=== PATIENT | female | born 1960 | race Caucasian/White ===

== ENCOUNTER 2021-03-07 10:26 | Inpatient (IN) | payer MEDICAID ==
[2021-03-07] VITALS (10 sets, daily range): BP systolic 140–191; BP diastolic 49–111
[~2021-03-07] VITALS: Ht 162.6 cm; Wt 50.9 kg
[~2021-03-07 10:26] MED LIST: VANCOMYCIN 1 GM in IV D5W 250ml IV ONE
--- NOTE | 2021-03-07 10:26 | NUR ---
PT BIBRA FROM THE STREET C/O BIZZARRE BEHAVIOR POSSIBLE DRUG USED. PT IS AAOX1, NOT IN RESPIRATORY DISTRESS, HOOKED TO DIGITAL CAMPAIGN MANAGER, KEPT RESTED AND COMFORTABLE. WILL CONTINUE TO MONITOR.
--- NOTE | 2021-03-07 10:48 | NUR ---
SEEN AND EXAMINED BY .
--- NOTE | 2021-03-07 10:53 | NUR ---
ER PHLEB AT BEDSIDE FOR BLOOD DRAW.
[2021-03-07 11:03] LABS: BASOPHILS % (AUTO) 0.1 % (0.0-2.0); HEMATOCRIT 39 % (33-45); HEMOGLOBIN 12.3 g/dL (11.5-14.8); LYMPHOCYTES # (AUTO) 0.7 /CMM (0.8-4.8); LYMPHOCYTES % (AUTO) 4.5 % (20.0-44.0); MEAN CORPUSCULAR HGB CONC 32 g/dl (31.0-36.0); MEAN CORPUSCULAR VOLUME 91 fL (82-100); MONOCYTES # (AUTO) 1.4 /CMM (0.1-1.30); MONOCYTES % (AUTO) 8.5 % (2.0-12.0); NEUTROPHILS # (AUTO) 14.2 /CMM (1.8-8.9); NEUTROPHILS % (AUTO) 86.9 % (43.0-81.0); PLATELET COUNT (AUTO) 213 /CMM (150-450); RED BLOOD CELL COUNT(AUTO) 4.31 MIL/uL (4.0-5.2); WHITE BLOOD COUNT (AUTO) 16.4 K/uL (4.3-11.0)
[2021-03-07 11:17] LABS: CALCIUM, SERUM 9.2 mg/dL (8.5-10.1); CARBON DIOXIDE 17 mmol/L (21-32); CHLORIDE 104 mmol/L (98-107); CREATININE 2.4 mg/dL (0.6-1.3); GLUCOSE 109 mg/dL (74-106); POTASSIUM 4.4 mmol/L (3.5-5.1); SODIUM SERUM 144 mmol/L (136-145); UREA NITROGEN, BLOOD 52 mg/dL (7-18)
--- NOTE | 2021-03-07 11:18 | NUR ---
URINE SPECIMEN COLLECTED AND SENT TO LAB.
[2021-03-07 11:20] LABS: ACETAMINOPHEN < 2 ug/ml (10-30); ALANINE AMINOTRANSFERASE 41 U/L (12-78); ALBUMIN 4.5 g/dL (3.4-5.0); ALCOHOL, BLOOD < 3 mg/dL (0-0); ALKALINE PHOSPHATASE 83 U/L (46-116); ASPARTATE AMINOTRANSFERASE 54 U/L (15-37); BILIRUBIN,DIRECT 0.4 mg/dL (0.0-0.2); BILIRUBIN,TOTAL 2.2 mg/dL (0.2-1.0); TOTAL PROTEIN, SERUM 9.2 g/dL (6.4-8.2)
[2021-03-07 11:36] LABS: BILIRUBIN,URINE LARGE (NEGATIVE); COLOR,URINE YELLOW (YELLOW); LEUKOCYTE ESTERASE ,URINE Negative (NEGATIVE); NITRITE, URINE Negative (NEGATIVE); PH,URINE 5.5 (5.0-8.0); PROTEIN,URINE >=300 mg/dl (NEGATIVE); UGLUCOSE Negative (NEGATIVE); UROBILINOGEN,URINE 0.2 EU/dL (0.2)
[2021-03-07 11:48] LABS: BACTERIA,URINE 2+ /HPF (None Seen); MUCUS,URINE Few /LPF (None Seen); RBC,URINE 21-50 /HPF (0-2); SQUAMOUS EPITHELIAL CELL,UR Few /HPF (None Seen); URINE AMORPHOUS URATE Many /HPF (None Seen)
[2021-03-07] MEDS ORDERED: OLANZAPINE 10 MG VIAL IM ONE ×2 (12:43→13:00)
[2021-03-07] MEDS ORDERED: IV NS 0.9% 1,000 ML BAG IV ONE (15:30)
--- NOTE | 2021-03-07 16:22 | NUR ---
SS consult requested for homelessness and bizarre behavior. SW attempted to assess the pt. on 2 separate occasions. However, pt. is disoriented, A&O X 1. SW placed homeless resources and waiver in the chart for follow up upon discharge.
[2021-03-07 16:38] LABS: ABG BASE EXCESS -17.9 mmol/L; ABG PCO2 24.3 mmHg (35.0-45.0); ABG PH 7.178 (7.350-7.450); AaDO2 28.6 mmHg; COHb 0.3 % (0.5-1.5); MetHb 0.6 % (0.0-1.5); O2Hb 92.2 % (94.0-97.0); SITE, ABG Right Radial; VENT MODE, BG room air
--- NOTE | 2021-03-07 16:52 | NUR ---
CALLED NURSING SUP FOR ICU BED.
[2021-03-07] MEDS ORDERED: PIPERACILLIN /TAZOBACTAM 3.375 G VIAL IV ONE ×2 (16:56→23:16)
[2021-03-07] MEDS ORDERED: LORAZEPAM INJ 2 MG/ML VIAL ONE (16:57)
[2021-03-07] MEDS ORDERED: LORAZEPAM INJ 2 MG/ML VIAL IV ONE (17:00)
[2021-03-07] MEDS ORDERED: PIPERACILLIN /TAZOBACTAM 3.375 G in IV D5W 50 ML IV ONE (17:00)
[2021-03-07] MEDS ORDERED: IV NS 0.9% 1,000 ML IV PRN (17:30)
[2021-03-07] MEDS ORDERED: Z GUARD REMEDY 2 OZ OINT TP PRN (17:30)
[2021-03-07] MEDS ORDERED: ZOLPIDEM TARTRATE 5 MG TABLET PO PRN (17:30)
[2021-03-07] MEDS ORDERED: MAG HYDROX/AL HYDROX/SIMETH 30 ML UDC PO PRN (17:30)
[2021-03-07] MEDS ORDERED: ACETAMINOPHEN 325 MG TABLET PO PRN (17:30)
[2021-03-07] MEDS ORDERED: ONDANSETRON HCL/PF 4 MG/2 ML VIAL IVP PRN (17:30)
[2021-03-07] MEDS ORDERED: MAGNESIUM HYDROXIDE 30 ML UDC PO PRN (17:30)
[2021-03-07 17:46] LABS: CREATININE 2.2 mg/dL (0.6-1.3); POTASSIUM 4.2 mmol/L (3.5-5.1)
[2021-03-07] MEDS ORDERED: PROPOFOL 100 ML ONE (17:57)
--- NOTE | 2021-03-07 18:04 | NUR ---
ETOMIDATE 15MG AND ROCURONIUM 50MG IVP GIVEN ORDERED BY .
--- NOTE | 2021-03-07 18:05 | NUR ---
PT IS INTUBATED BY , ET SIZE 7, 22 CM ON THE LIP. POSITIVE COLOR CHANGED AND EQUAL CHEST RISE.
[2021-03-07] MEDS ORDERED: MIDAZOLAM HCL 50 MG in IV NS 0.9% 40 ML IV PRN (18:30)
[2021-03-07] MEDS ORDERED: ROCURONIUM BROMIDE 50 MG/5 ML IV ONE ×2 (18:30→20:58)
[2021-03-07] MEDS ORDERED: PROPOFOL 100 ML IV PRN ×2 (18:30→21:00)
[2021-03-07] MEDS ORDERED: ETOMIDATE 2 MG/ML VIAL IV ONE ×2 (18:30→20:58)
--- NOTE | 2021-03-07 18:30 | NUR ---
RT NOTE, PT. 60 Y OLD FEMALE IN ER # 5 X3RT AT THE BEDSIDE. ASSISTED DR. YAÑEZ FOR INTUBATION @ 1805 ETT# 7.0 @ 22 CM LIP LINE, EQUAL CHEST RISE NOTED, BILATERALLY B/S AND GOOD COLOR EXCHANGE VIA CAPNOGRAPHY, PLACED ON VENT WITH NOTED SETTINGS PER MD ORDER. ALARMS ARE SET AND FUNCTIONAL, AMBU BAG REMAIN AT THE BEDSIDE. CONTINUE TO MONITOR AND REPORT WILL PASS TO PM SHIFT.
--- NOTE | 2021-03-07 18:32 | NUR ---
CALLED ICU FOR REPORT NO ANSWER.
--- NOTE | 2021-03-07 18:40 | NUR ---
REPORT GIVEN TO ESTEBAN DE LUNA FOR VAIBHAV.
--- NOTE | 2021-03-07 19:00 | NUR ---
RN NOTES GET REPORT FROM ER PATIENT WILL BRING UP IN 10 MINS WITH DX OF ACUTE RESPIRATORY DISTRESS,DRUG OVERDOSE ON COCAINE, AND AMPHETAMINE FROM STREET. ACIDOSIS PH-[phone], PCO2-24.3 AFTER ABG RESULT. PATIENT INTUBATED @1805, TUBE 7.0/22, FIO2-60 , PEEP-5 , TV- 400, AC- 22, . PATIENT HAS PICC LINE INSERTED , WELL GONSALVES IN ER. PATIENT 98 LBS, AND INFUSING DIPRIVAN 10MCG/KG/HR ON DANNY PICC LINE.
--- NOTE | 2021-03-07 19:00 | NUR ---
ADMITTED PT FROM ER. INTUBATED WITH ETT 7, ON VENT SETTING PER MD AC 22 TV 400 FIO2 60 PEEP 5 SPO2 98% NO SIGN AND SYMPTOMS OF DISTRESS,ON PROPOFOL @ 10MCG/KG/MIN INFUSING WELL VIA LEFT HAND IV #18 PT IS A LITTLE AGITATED UPON TRANSFERRING FROM [facility] TO BED, WILL TITRATE PROPOFOL PER MD ORDER/ PROTOCOL,PT HAVE DANNY 3L PICC LINE PATENT AND FLUSHED, DRESSING DRY AND INTACT, ALSO HAVE RAC# 20 PATENT AND FLUSHED, HOOKED TO BEDSIDE MONITOR WITH READING SINUS TACHY WITH EPISODES OF PVC, V/S CHECKED AND RECORDED, VENT AND IV PUMP PLUGGED TO RED OUTLET AMBUBAG AT BEDSIDE, HEAD TO TOE ASSESSMENT DONE, PT HAVE GONSALVES CATHETER WITH CLEAR YELLOW URINE DRAINING VIA GRAVITY, ADMISSION ASSESSMENT DONE, BILATERAL WRIST RESTRAINTS STARTED PER MD ORDER FOR SELF EXTUBATION PREVENTION, BED ON LOWEST POSITION AND LOCKED SIDE RAILS UP X 2 WILL CONT TO MONITOR THE PT
--- NOTE | 2021-03-07 19:16 | NUR ---
RN NOTES REPORT GIVEN ONCOMING NURSE FOLLOW PLAN OF CARE, AND COMPUTER QUESTIONS.
[2021-03-07] MEDS: ENOXAPARIN SODIUM 30 MG/0.3 ML DISP.SYRIN SQ SCH (20:30)
--- NOTE | 2021-03-07 20:45 | NUR ---
FIO2 DECREASE TO 40% DUE TO HIGH PAO2 ON ABG, SPO2 100% WILL CONT TO MONITOR
[2021-03-07 20:54] LABS: ABG BASE EXCESS -16.7 mmol/L; ABG OXYGEN SATURATION 99.4 % (92.0-98.5); ABG PCO2 31.3 mmHg (35.0-45.0); ABG PH 7.157 (7.350-7.450); ABG PO2 317.2 mmHg (75.0-100.0); AaDO2 76.2 mmHg; COHb 0.1 % (0.5-1.5); MetHb 0.4 % (0.0-1.5); O2Hb 98.9 % (94.0-97.0); SITE, ABG Right Radial
--- NOTE | 2021-03-07 20:57 | NUR ---
POST INTUBATION ABG DONE. NOTIFIED RN AND DR JO WITH THE CRITICAL VALUES.
[2021-03-07] MEDS: PROPOFOL 100 ML IV PRN ×2 (21:00→23:01)
[2021-03-07] MEDS ORDERED: IV NS 0.9% 1,000 ML IV ONE ×2 (21:00→22:30)
[2021-03-07] MEDS ORDERED: SODIUM BICARBONATE SYR 50 MEQ/50 ML DISP.SYRIN IV ONE (21:00)
[2021-03-07 21:42] LABS: BASOPHILS % (AUTO) 0.2 % (0.0-2.0); HEMATOCRIT 38 % (33-45); HEMOGLOBIN 11.7 g/dL (11.5-14.8); LYMPHOCYTES % (AUTO) 13.2 % (20.0-44.0); MEAN CORPUSCULAR HGB CONC 31 g/dl (31.0-36.0); MEAN CORPUSCULAR VOLUME 94 fL (82-100); MONOCYTES # (AUTO) 1.3 /CMM (0.1-1.30); MONOCYTES % (AUTO) 16.7 % (2.0-12.0); NEUTROPHILS # (AUTO) 5.3 /CMM (1.8-8.9); NEUTROPHILS % (AUTO) 69.9 % (43.0-81.0); PLATELET COUNT (AUTO) 153 /CMM (150-450); RED BLOOD CELL COUNT(AUTO) 4.06 MIL/uL (4.0-5.2); WHITE BLOOD COUNT (AUTO) 7.6 K/uL (4.3-11.0)
[2021-03-07 21:58] LABS: CALCIUM, SERUM 7.3 mg/dL (8.5-10.1); CREATININE 1.9 mg/dL (0.6-1.3); POTASSIUM 4.3 mmol/L (3.5-5.1)
--- NOTE | 2021-03-07 21:58 | NUR ---
SEEN AND EXAMINE BY ONCCHIQUITA JO DNP, RAZ JO NOTICE THAT PT STILL AWAKE AND AGITATED DESPITE MAX DOSE OF PROPOFOL HE MADE AN ORDER FOR VERSED 2MG IV PUSH X1 NOTED AND CARRIED OUT
[2021-03-07] MEDS ORDERED: MIDAZOLAM HCL 2 MG/2ML VIAL IV STA (22:17)
[2021-03-07 22:34] LABS: BAND % (MANUAL) 15 % (0.0-5.0); LYMPHOCYTES % (MANUAL) 13 % (16-48); MONOCYTES % (MANUAL) 16 % (0-11.0)
[2021-03-07 22:35] LABS: NEUTROPHILS % (MANUAL) 56 (42-76)
[2021-03-07] MEDS: MIDAZOLAM HCL 100 MG in IV NS 0.9% 80 ML IV PRN (23:16)
[2021-03-07] MEDS ORDERED: VANCOMYCIN 1 GM VIAL ONE (23:16)
[2021-03-07] MEDS: ZOSYN IVPB 3.375 G in IV D5W 50ml IV SCH (23:26)
[2021-03-08] VITALS (60 sets, daily range): BP systolic 70–154; BP diastolic 52–111
[2021-03-08] MEDS ORDERED: VANCOMYCIN 1 GM in IV D5W 250ml IV ONE
[2021-03-08] MEDS ORDERED: CT SWABBABLE VALVE TRANS SET 1 EA INFUS.SET MC ONE (00:11)
[2021-03-08] MEDS ORDERED: IV NS 0.9% 250 ML IV ONE ×2 (00:11→15:30)
[2021-03-08] MEDS ORDERED: IOHEXOL-300 100 ML VIAL IV ONE (00:11)
--- NOTE | 2021-03-08 01:00 | NUR ---
BRING PT TO CT SCAN VIA ACLS PROTOCOL PT IS ON SEDATION OF PROPOFOL 100MCG/KG/MIN AND VERSED 1.5 MG.HR INFUSING WELL, RT IS AT BEDSIDE ALL TIME, AMBUBAG IS AT BEDSIDE NO SIGN AND SYMPTOMS OF RESPIRATORY DISTRESS, CT SCAN TOLERATING WELL WILL CONT TO MONITOR
[2021-03-08] MEDS: PROPOFOL 100 ML IV PRN ×4 (02:29→16:41)
[2021-03-08] MEDS: IV 1/2NS 1000 ML 1,000 ML IV PRN ×2 (02:30→10:47)
[2021-03-08 04:33] LABS: BASOPHILS % (AUTO) 0.2 % (0.0-2.0); HEMATOCRIT 36 % (33-45); HEMOGLOBIN 11.9 g/dL (11.5-14.8); LYMPHOCYTES # (AUTO) 0.5 /CMM (0.8-4.8); MEAN CORPUSCULAR HGB CONC 33 g/dl (31.0-36.0); MEAN CORPUSCULAR VOLUME 89 fL (82-100); MONOCYTES # (AUTO) 0.1 /CMM (0.1-1.30); MONOCYTES % (AUTO) 3.8 % (2.0-12.0); NEUTROPHILS # (AUTO) 1.2 /CMM (1.8-8.9); PLATELET COUNT (AUTO) 155 /CMM (150-450); RED BLOOD CELL COUNT(AUTO) 4.04 MIL/uL (4.0-5.2)
[2021-03-08] MEDS ORDERED: PIPERACILLIN /TAZOBACTAM 3.375 G VIAL IV ONE (04:35)
[2021-03-08 04:50] LABS: THYROID STIMULATING HORMONE 0.257 uIU/mL (0.358-3.74); WHITE BLOOD COUNT (AUTO) 1.8 K/uL (4.3-11.0)
[2021-03-08 04:56] LABS: CALCIUM, SERUM 6.4 mg/dL (8.5-10.1); CREATININE 1.3 mg/dL (0.6-1.3); MAGNESIUM 1.8 mg/dL (1.8-2.4); PHOSPHORUS 3.3 mg/dL (2.5-4.9); POTASSIUM 3.6 mmol/L (3.5-5.1)
[2021-03-08] MEDS: ZOSYN IVPB 3.375 G in IV D5W 50ml IV SCH (05:00)
[2021-03-08 05:40] LABS: BASOPHILS % (AUTO) 0.2 % (0.0-2.0); EOSINOPHILS % (AUTO) 0.1 % (0.0-6.0); HEMATOCRIT 39 % (33-45); HEMOGLOBIN 12.3 g/dL (11.5-14.8); LYMPHOCYTES # (AUTO) 0.4 /CMM (0.8-4.8); LYMPHOCYTES % (AUTO) 15.8 % (20.0-44.0); MEAN CORPUSCULAR HGB CONC 32 g/dl (31.0-36.0); MEAN CORPUSCULAR VOLUME 92 fL (82-100); MONOCYTES # (AUTO) 0.4 /CMM (0.1-1.30); MONOCYTES % (AUTO) 16.3 % (2.0-12.0); NEUTROPHILS # (AUTO) 1.8 /CMM (1.8-8.9); NEUTROPHILS % (AUTO) 67.6 % (43.0-81.0); PLATELET COUNT (AUTO) 148 /CMM (150-450); RED BLOOD CELL COUNT(AUTO) 4.21 MIL/uL (4.0-5.2); WHITE BLOOD COUNT (AUTO) 2.7 K/uL (4.3-11.0)
[2021-03-08 05:54] LABS: BAND % (MANUAL) 20 % (0.0-5.0); LYMPHOCYTES % (MANUAL) 44 % (16-48); MONOCYTES % (MANUAL) 11 % (0-11.0); NEUTROPHILS % (MANUAL) 25 (42-76)
[2021-03-08 06:12] LABS: ABG BASE EXCESS -6.3 mmol/L; ABG PCO2 31.4 mmHg (35.0-45.0); ABG PH 7.372 (7.350-7.450); ABG PO2 138.7 mmHg (75.0-100.0); AaDO2 110.4 mmHg; COHb 0.2 % (0.5-1.5); MetHb 0.5 % (0.0-1.5); O2Hb 98.3 % (94.0-97.0); PEEP,BG 5 cm H2O; SITE, ABG Right Radial; VENT MODE, BG AC 22/400/40%/+5; VT, ABG 400 mL
--- NOTE | 2021-03-08 06:13 | NUR ---
ABG DONE. NOTIFIED RN WITH THE RESULT.
[2021-03-08] MEDS ORDERED: PANTOPRAZOLE 40 MG TABLET.DR PO SCH (07:30)
--- NOTE | 2021-03-08 07:41 | NUR ---
PT ON BED STILL SEDATED/INTUBATED WITH SETTING PER MD FIO2 40% SPO2 100, NO SIGN OF RESPIRATORY DISTRESS, TELE MONITOR READS SINUS TACHY 130'S, STILL ON DIPRIVAN 100 MCG/KG/MIN, VERSED 1.5 MG/HR INFUSING WELL, BED ON LOWEST POSITION AND LOCKED SIDE RAILS UP X 2 CALL LIGHT WITHIN REACH ENDORSED TO AM SHIFT NURSE
--- NOTE | 2021-03-08 08:00 | NUR ---
RT RECEIVED PATIENT ORALLY INTUBATED WITH ETT 7.0 AT 22CM AT THE LIP LINE WITH NOTED VENT SETTINGS PER MD ORDER. CXR CONFIRMED PROPER PLACEMENT OF ETT. ETT SECURED BY ANCHOR FAST. BILATERAL BREATH SOUNDS ON AUSCULTATION. SUCTIONED SMALL AMOUNTS OF THICK, WHITE SECRETIONS. ALARMS ON AND FUNCTIONING PROPERLY. AMBU BAG AT [facility]. VENT PLUGGED INTO RED OUTLET. PT TOLERATING SETTINGS WELL, NO SOB OR SIGNS OF DISTRESS NOTED AT THIS TIME. WILL CONTINUE TO MONITOR THE PATIENT THROUGHOUT SHIFT FOR ANY CHANGES. Addendum: 03/09/21 at 0825 by NORM TATUM RT Amended: Links added.
[2021-03-08] MEDS: PANTOPRAZOLE 40 MG VIAL IV SCH (08:15)
[2021-03-08] MEDS ORDERED: IV NS 0.9% 500 ML BAG IV ONE ×2 (09:00→11:00)
--- NOTE | 2021-03-08 09:00 | NUR ---
Dr Patel informed of pt's consistent moderately low BP - mean BP above 65 - new order for 500 ml of NS started as per order - pt urine output low - pending effect to additional volume being given
--- NOTE | 2021-03-08 09:22 | NUR ---
RT VENT CHANGES: PEEP TO [address] DE LEON'S ORDERS. RN NOTIFIED AND AWARE OF CHANGES. NO SIGNS OF DISTRESS NOTED AT THIS TIME. WILL CONTINUE TO MONITOR FOR ANY CHANGE OF CONDITION. Addendum: 03/09/21 at 0814 by NORM TATUM RT Amended: Links added.
[2021-03-08] MEDS: PIPERACILLIN /TAZOBACTAM 3.375 G in IV D5W 50 ML IV SCH ×3 (12:52→23:35)
[2021-03-08] MEDS ORDERED: IV NS 0.9% 1,000 ML IV ONE (15:30)
[2021-03-08] MEDS: VANCOMYCIN 500 MG in IV D5W 100 ML IV SCH (15:32)
--- NOTE | 2021-03-08 19:05 | NUR ---
ACCORDING TO CHUNG RN THEY ATTEMPTED TO DO SEDATION VACATION BUT UPON TITRATING DOWN THE PROPOFOL @ 30 MCG/KG/MIN THE PATIENT STARTED TO COUGH AND GET AGITATED,
--- NOTE | 2021-03-08 19:15 | NUR ---
RECEIVED PT ON BED. INTUBATED WITH ETT 7 LIP 22CM, ON VENT SETTING PER MD BROWN 22 TV 400 FIO2 40 PEEP 0 SPO2 98% NO SIGN AND SYMPTOMS OF DISTRESS,ON PROPOFOL @ 30MCG/KG/MIN AND VERSED @ 1.5 MG/HR AND NS @ 200ML/HR INFUSING WELL VIA DANNY 3L PICC LINE PATENT AND FLUSHED, DRESSING DRY AND INTACT, ALSO HAVE RAC# 20 AND LEFT HAND #18 PATENT AND FLUSHED, HOOKED TO BEDSIDE MONITOR WITH READING SINUS TACHY WITH EPISODES OF PVC, V/S CHECKED AND RECORDED, VENT AND IV PUMP PLUGGED TO RED OUTLET AMBUBAG AT BEDSIDE, HEAD TO TOE ASSESSMENT DONE, PT HAVE GONSALVES CATHETER WITH CLEAR YELLOW URINE DRAINING VIA GRAVITY, HAVE BILATERAL WRIST RESTRAINTS FOR SELF EXTUBATION PREVENTION, BED ON LOWEST POSITION AND LOCKED SIDE RAILS UP X 2 WILL CONT TO MONITOR THE PT
[2021-03-08] MEDS: ENOXAPARIN SODIUM 30 MG/0.3 ML DISP.SYRIN SQ SCH (20:29)
--- NOTE | 2021-03-08 20:30 | NUR ---
CALLED DR. RAZ JO TO COME AND RENEW THE ORDER FOR BILATERAL WRIST RESTRAINTS. TRIAL RELEASE OF RESTRAINTS INITIATED WHILE WAITING FOR DR RAZ JO TO COME AND EVALUATE PATIENT
[2021-03-08] MEDS: IV NS 0.9% 1,000 ML IV PRN (22:28)
--- NOTE | 2021-03-08 23:20 | NUR ---
PT ON BED SEDATED NO SIGN AND SYMPTOMS OF RESPIRATORY DISTRESS STILL ON ETT/VENT SETTING PER MD FIO2 40% SPO2 100% STILL ON PROPOFOL 30 MCG/KG/MIN AND VERSED @ 1.5 MG/HR PT STILL ON BILATERAL SOFT WRIST RESTRAINTS CIRCULATION CHECKED, WILL MONITOR CLOSELY FOR SIGNS OF AGITATION AND WILL TITRATE PROPOFOL AND VERSED PER PROTOCOL, WILL CONT TO MONITOR
[2021-03-08] MEDS: MIDAZOLAM HCL 100 MG in IV NS 0.9% 80 ML IV PRN (23:41)
[2021-03-09] VITALS (37 sets, daily range): BP systolic 97–135; BP diastolic 57–93
[2021-03-09] MEDS: PROPOFOL 100 ML IV PRN
[2021-03-09] MEDS ORDERED: PROPOFOL 100 ML IV PRN
[2021-03-09] MEDS: VANCOMYCIN 500 MG in IV D5W 100 ML IV SCH ×2 (02:27→14:59)
--- NOTE | 2021-03-09 02:30 | NUR ---
ATTEMPTED TO DO SEDATION VACATION ON MY SHIFT BUT UPON TITRATING DOWN THE PROPOFOL, THE PT BECOME VERY AGITATED AND TACHYPNEIC NEED TO INCREASE THE VERSED. WILL MONITOR PATIENT CLOSELY
[2021-03-09 04:41] LABS: BASOPHILS % (AUTO) 0.1 % (0.0-2.0); EOSINOPHILS % (AUTO) 0.1 % (0.0-6.0); HEMATOCRIT 35 % (33-45); HEMOGLOBIN 11.3 g/dL (11.5-14.8); LYMPHOCYTES # (AUTO) 0.8 /CMM (0.8-4.8); LYMPHOCYTES % (AUTO) 5.9 % (20.0-44.0); MEAN CORPUSCULAR HGB CONC 33 g/dl (31.0-36.0); MEAN CORPUSCULAR VOLUME 89 fL (82-100); MONOCYTES # (AUTO) 1.3 /CMM (0.1-1.30); MONOCYTES % (AUTO) 9.4 % (2.0-12.0); NEUTROPHILS # (AUTO) 12.1 /CMM (1.8-8.9); NEUTROPHILS % (AUTO) 84.5 % (43.0-81.0); WHITE BLOOD COUNT (AUTO) 14.3 K/uL (4.3-11.0)
[2021-03-09 04:44] LABS: ALBUMIN 1.9 g/dL (3.4-5.0); BILIRUBIN,TOTAL 0.7 mg/dL (0.2-1.0); CREATININE 1.1 mg/dL (0.6-1.3); MAGNESIUM 1.6 mg/dL (1.8-2.4); PHOSPHORUS 2.5 mg/dL (2.5-4.9); POTASSIUM 3.1 mmol/L (3.5-5.1); TOTAL PROTEIN, SERUM 5.4 g/dL (6.4-8.2)
--- NOTE | 2021-03-09 05:00 | NUR ---
PT ON BED STILL SEDATED BUT NOTED COUGHING WHILE SUCTIONING, ON ETT/VENT SETTING PER MD SPO2 100% NO SIGNS OF RESPIRATORY DISTRESS, WILL CONT TO MONITOR
[2021-03-09 05:14] LABS: BAND % (MANUAL) 56 % (0.0-5.0); LYMPHOCYTES % (MANUAL) 7 % (16-48); METAMYELOCYTES % 1 % (0-0); MONOCYTES % (MANUAL) 1 % (0-11.0); NEUTROPHILS % (MANUAL) 34 (42-76); PROMYELOCYTES % 1 % (0-0)
[2021-03-09 05:17] LABS: PLATELET COUNT (AUTO) 104 /CMM (150-450)
[2021-03-09] MEDS: PIPERACILLIN /TAZOBACTAM 3.375 G in IV D5W 50 ML IV SCH ×3 (05:56→17:08)
[2021-03-09] MEDS: IV NS 0.9% 1,000 ML IV PRN ×2 (06:10→13:20)
--- NOTE | 2021-03-09 07:07 | NUR ---
PT IS HOMELESS AND NO FAMILY MEMBERS SOCIAL SERVICE WAS CONSULTED
--- NOTE | 2021-03-09 07:15 | NUR ---
AUTOMATIC DRILLING MACHINE OPERATOR NOTES RECEIVED PATIENT IN BED, SEDATED AND INTUBATED, NO SIGNS OF DISTRESS AT THIS TIME, NOTED WITH DANNY TRIPLE LUMEN PICC AND LEFT HAND #18, VERSED @3.5 MG/HR AND NORMAL SALINE RUNNING @150ML/HR. INTACT AND PATENT NO SIGNS OF INFILTRATION, NOTED WITH GONSALVES CATHETER DRAINING VIA GRAVITY WITH CLEAR YELLOW URINE OUTPUT. SAFETY MEASURES MAINTAINED, BED IN LOWEST LOCKED POSITION WITH SIDERAILS UP X2. WILL CONTINUE TO MONITOR.
[2021-03-09] MEDS: PANTOPRAZOLE 40 MG VIAL IV SCH (07:56)
--- NOTE | 2021-03-09 08:17 | NUR ---
Female pt received orally intubated with 7.0 et-tube secured at 22cm. Ventilator settings as ordered alarms set and audible. B/S equal small pale yellow sputum. pt sedated at this time. Ambu-bag at head of bed. Ventilator plugged into red outlet. Addendum: 03/09/21 at 0821 by TAYLOR CURRY RT Amended: Links added.
--- NOTE | 2021-03-09 09:00 | NUR ---
DRIFTMAN NOTES PATIENT IN STABLE CONDITION, CURRENTLY DOING WEANING TRIAL, TITRATING VERSED DOWN PER PROTOCOL. WILL CONTINUE TO MONITOR.
[2021-03-09] MEDS: Magnesium 1GM/D5W 100ML PREMIX 100 ML IV SCH ×2 (09:45→10:57)
--- NOTE | 2021-03-09 09:56 | NUR ---
Teradata Solution Architect note: deputy sheriff court services consult received for homeless patient, with no family members. Patient is a 60-year-old, female. SW was unable to interview patient. Per RN Chano, patient is currently intubated. MARTI Ardon had previously filed homeless resources and waiver in the patient's chart for follow up upon discharge. SS will continue to coordinate with nursing staff, and remain available as needed.
[2021-03-09] MEDS: POTASSIUM CL. PREMIX PERIPHER. 50 ML IV SCH ×4 (10:00→14:15)
[2021-03-09] MEDS ORDERED: POTASSIUM CHLORIDE 20 MEQ TAB.PRT.SR PO SCH (10:00)
--- NOTE | 2021-03-09 10:10 | NUR ---
IP/MOSAIC TECHNICIAN NOTES SEEN AND EXAMINED BY DR. LEANDRA MD MADE AWARE OF TRYGLYCERIDES OF 209 YESTERDAY AND [address] ON THE MONITOR WITH HR OF 120'S. NNO AT THIS TIME. WILL CONTINUE TO MONITOR.
--- NOTE | 2021-03-09 10:30 | NUR ---
DRIVER HELPER NOTES VERSED ON HOLD, WEANING TRIAL, MD AND RT AT BEDSIDE. WILL CONTINUE TO MONITOR.
[2021-03-09 11:28] LABS: ABG BASE EXCESS -5.7 mmol/L; ABG OXYGEN SATURATION 97.9 % (92.0-98.5); ABG PCO2 29.4 mmHg (35.0-45.0); ABG PH 7.402 (7.350-7.450); ABG PO2 102.9 mmHg (75.0-100.0); AaDO2 148.5 mmHg; MetHb 0.2 % (0.0-1.5); O2Hb 97.7 % (94.0-97.0); PEEP,BG 5 cm H2O; SITE, ABG Right Radial; VENT MODE, BG SIMV 4 PSV 15; VT, ABG 400 mL
--- NOTE | 2021-03-09 11:45 | NUR ---
POULTRY FARMWORKER NOTES PER DR. MOISES ST TO EXTUBATE. WILL NOTIFY RT AND MONITOR.
[2021-03-09] MEDS ORDERED: DC PROPOFOL WHEN EXTUBATED XX PRN (11:50)
--- NOTE | 2021-03-09 12:00 | NUR ---
EMERGENCY DEPARTMENT RN NOTES S/P EXTUBATION, TOLERATED, ON OXYGEN 3LPM VIA NC SATING 100%. WILL CONTINUE TO MONITOR.
--- NOTE | 2021-03-09 12:00 | NUR ---
PT EXTUBATED PER MD ORDER. ZERO DISTRESS NOTED AT THIS TIME. B/S EQUAL AND CLEAR. NO STRIDOR NOTED. PT ABLE TO CLEAR AIRWAY. PLACED ON 3LPM N/C
[2021-03-09] MEDS: IV 1/2NS 1000 ML 1,000 ML IV PRN ×2 (13:52→23:17)
--- NOTE | 2021-03-09 18:30 | NUR ---
OFFICE ASSISTANT NOTES PATIENT IN BED RESTING COMFORTABLY IN MODERATE HIGH BACK REST, NON VERBAL BUT ABLE TO FOLLOW SIMPLE COMMANDS, ON OXYGEN 2LPM VIA NC SATING 98%, NO SIGNS OF DISTRESS THROUGHOUT THE SHIFT. S/P EXTUBATION. IV ACCESS ON DANNY TRIPLE LUMEN WITH 1/2 NS RUNNING @ 125ML/HR. GONSALVES CATHETER IN PLACE WITH CLEAR YELLOW OUTPUT. SAFETY MEASURES MAINTAINED, WILL ENDORSE TO RESEARCH AND DEVELOPMENT DIRECTOR NURSE FOR VAIBHAV.
[2021-03-09] MEDS: ENOXAPARIN SODIUM 30 MG/0.3 ML DISP.SYRIN SQ SCH (21:40)
--- NOTE | 2021-03-09 21:42 | NUR ---
RN NOTES INFORMED DR. JO REGARDING PATIENT LARGE LOOSE GREENISH BLACK STOOL AND PATIENT ON LOVENOX 30 MG PER ONCALL OK TO GIVE LOVENOX. ALSO CALLED FOR RENEWAL OF BILATERAL WRIST RESTRAINT.
[2021-03-10] VITALS (23 sets, daily range): BP systolic 105–147; BP diastolic 71–103
--- NOTE | 2021-03-10 00:30 | NUR ---
RN NOTES PATIENT CARE DONE . PATIENT IS RESPONSIVE TO NAME AND PAIN. UNABLE TO VERBALIZED FEELINGS AND WORDS. NO SOB OR ACUTE RESPIRATORY DISTRESS, WITH O2 2LM VIA NC. SINUS TACH ON MONITOR. GONSALVES CATH DRAINED VIA GRAVITY. IVSITE ON DANNY PICC LINE ARE INTACT AND PATENT WITH GOO BL RETURNED IV SITE ON DANNY PICC LINE INTACT AND PATENT. WITH 1/2 NS @ 125 ML/HR R KEPT PT CLEAN AND DRY WILL CONTINUE TO MONITOR
[2021-03-10] MEDS: PIPERACILLIN /TAZOBACTAM 3.375 G in IV D5W 50 ML IV SCH ×5 (00:47→23:19)
[2021-03-10] MEDS: VANCOMYCIN HCL 0.75 GM in IV D5W 250 ML IV SCH ×2 (03:25→14:50)
[2021-03-10 04:22] LABS: EOSINOPHILS % (AUTO) 0.7 % (0.0-6.0); HEMATOCRIT 30 % (33-45); HEMOGLOBIN 9.7 g/dL (11.5-14.8); LYMPHOCYTES # (AUTO) 0.9 /CMM (0.8-4.8); LYMPHOCYTES % (AUTO) 7.5 % (20.0-44.0); MEAN CORPUSCULAR HGB CONC 32 g/dl (31.0-36.0); MEAN CORPUSCULAR VOLUME 90 fL (82-100); MONOCYTES % (AUTO) 8.2 % (2.0-12.0); NEUTROPHILS # (AUTO) 10.5 /CMM (1.8-8.9); NEUTROPHILS % (AUTO) 83.6 % (43.0-81.0); PLATELET COUNT (AUTO) 113 /CMM (150-450); RED BLOOD CELL COUNT(AUTO) 3.37 MIL/uL (4.0-5.2); WHITE BLOOD COUNT (AUTO) 12.5 K/uL (4.3-11.0)
[2021-03-10 04:38] LABS: ALBUMIN 1.7 g/dL (3.4-5.0); BILIRUBIN,TOTAL 0.7 mg/dL (0.2-1.0); CALCIUM, SERUM 7.5 mg/dL (8.5-10.1); CREATININE 0.8 mg/dL (0.6-1.3); MAGNESIUM 2.2 mg/dL (1.8-2.4); POTASSIUM 3.1 mmol/L (3.5-5.1)
--- NOTE | 2021-03-10 07:15 | NUR ---
CITRIX ARCHITECT NOTES RECEIVED PATIENT IN BED RESTING COMFORTABLY IN MODERATE HIGH BACK REST. AWAKE ALERT ORIENTED X 1. TOLERATING O2 2LPM VIA NC SATURATION KEPT 98%. ST ON TELE MONITOR WITH HR OF 110. CONTINUE NPO IVF ONGOING RUNNING WITH 1/2 NS @ 125 ML/HR . GONSALVES CATH IN PLACE DRAINING WELL VIA GRAVITY WITH CLEAR YELLOW URINE OUTPUT. SAFETY MEASURES MAINTAINED, BED IN LOWEST LOCKED POSITION WITH SIDE RAILS UP X2, CALL LIGHT WITHIN EASY REACH, WILL CONTINUE TO MONITOR.
--- NOTE | 2021-03-10 07:35 | NUR ---
RN NOTES PATIENT IS MORE AWAKE ALERT ORIENTED X 1. VERBALIZED NEEDS. AFEBRILE. TOLERATED O2 2LPM VIA NC SATURATION KEPT >92%. SR ON TELE MONITOR. CONTINUE NPO IVF ONGOING RUNNING WITH 1/2 NS @ 125 ML/HR . GONSALVES CATH DRAINED WELL VIA GRAVITY. PATIENT REMAINED COMPLIANT , NO NEED FOR RESTRAINT AT THIS TIME. ALL DUE MEDS TOLERATED WELL. WILL CONTINUE POC.
[2021-03-10] MEDS: PANTOPRAZOLE 40 MG VIAL IV SCH (08:04)
[2021-03-10] MEDS: IV 1/2NS 1000 ML 1,000 ML IV PRN ×2 (08:53→17:25)
[2021-03-10 11:07] LABS: *SPE A/G RATIO 0.8 (0.7-1.7); *SPE ALBUMIN 2.3 g/dL (2.9-4.4); *SPE ALPHA-1-GLOBULIN 0.4 g/dL (0.0-0.4); *SPE ALPHA-2-GLOBULIN 0.8 g/dL (0.4-1.0); *SPE BETA GLOBULIN 0.8 g/dL (0.7-1.3); *SPE GLOBULIN, TOTAL 2.8 g/dL (2.2-3.9); *SPE M-SPIKE Not Observed g/dL (Not Observed); *SPEGAMMA GLOBULIN 0.9 g/dL (0.4-1.8)
[2021-03-10] MEDS: POTASSIUM CL. PREMIX PERIPHER. 50 ML IV SCH ×4 (11:35→14:45)
[2021-03-10 12:07] LABS: PTH, INTACT 28 pg/mL (15-65)
[2021-03-10] MEDS ORDERED: Sodium Phosphate 15 MMOL in IV NS 0.9% 245 ML IV ONE (15:30)
[2021-03-10] MEDS: GLUCERNA SHAKE 237 ML CAN PO SCH (17:18)
--- NOTE | 2021-03-10 18:10 | NUR ---
QA CONSULTANT ADMITTING NOTES RECEIVED TRANSFER FROM ICU. PATIENT A/O X1, ON ROOM AIR, CURRENTLY MEDICALLY STABLE. VITAL SIGNS WNL, TACHYCARDIC AT 110. SAFETY PRECAUTIONS IN PLACE; BED IN LOW POSITION AND LOCKED, RAILS UP X2, CALL LIGHT WITHIN REACH. WILL CONTINUE TO MONITOR PATIENT.
--- NOTE | 2021-03-10 18:20 | NUR ---
CHIMNEY SUPERVISOR BRICK NOTES PATIENT TRANSFERRED TO [facility] ON ROOM 320-2 VIA ACLS PROTOCOL. NO SIGNS OF DISTRESS, ALL MEDICATION AND BELONGINGS WITH PATIENT. BEDSIDE REPORT GIVEN TO ESTEBAN YOUNG.
--- NOTE | 2021-03-10 19:01 | NUR ---
HAND TUFTER CLOSING NOTES PATIENT RESTING COMFORTABLY IN BED. WILL ENDORSE TO NEEDLEMAKER NURSE FOR VAIBHAV.
[2021-03-10] MEDS: ENOXAPARIN SODIUM 30 MG/0.3 ML DISP.SYRIN SQ SCH (20:43)
[2021-03-10 21:06] LABS: CREATININE KINASE (CK),MB 12.8 ng/mL (0.0-5.3)
--- NOTE | 2021-03-10 21:13 | NUR ---
RN NOTES ALERT/ORIENTED X2, STABLE ON 2LPM VIA NC, ABLE TO VERBALIZE NEEDS, DENIES PAIN AT THIS TIME, ABLE TO SWALLOW WITHOUT DIFFICULTY, STARTED ON PUDDING, ABLE TO SWALLOW, NO COUGHING, SINUS TACH 119 ON THE TELE, NOTIFIED DR. JO, ORDERED ECG.
--- NOTE | 2021-03-10 21:48 | NUR ---
RT NOTE STAT EKG TAKEN WHILE RN AT BEDSIDE. RESULTS GIVEN TO RN.
--- NOTE | 2021-03-10 22:02 | NUR ---
RN NOTES EKG DONE, ST, BP 151/102, HR 120, NO NEW ORDER, PER DR. JO, PATIENT STILL IN THE PROCESS OF DRUG WITHDRAWAL.
[2021-03-11] MEDS: VANCOMYCIN HCL 0.75 GM in IV D5W 250 ML IV SCH (02:00)
[2021-03-11] MEDS: IV 1/2NS 1000 ML 1,000 ML IV PRN ×2 (02:00→12:58)
[2021-03-11 04:32] VITALS: BP 148/95
[2021-03-11] MEDS: PIPERACILLIN /TAZOBACTAM 3.375 G in IV D5W 50 ML IV SCH (05:42)
--- NOTE | 2021-03-11 06:01 | NUR ---
03/11/21 PM SHIFT ALERT/ORIENTED X2, STABLE ON ROOM AIR, DENIES PAIN AT THIS TIME, CALM, COOPERATIVE, DRINKING AND EATING WITHOUT DIFFICULTY, DANNY PICC LINE PATENT, GONSALVES CATHETER DRAINING WELL, CLEAR AND YELLOW URINE, SKIN INTACT, BM X1, CONTINUE ZOSYN, VANCOMYCIN IV, MONITOR LABS, MONITOR ORAL INTAKE.
[2021-03-11 06:03] LABS: BASOPHILS % (AUTO) 0.2 % (0.0-2.0); EOSINOPHILS % (AUTO) 3.6 % (0.0-6.0); HEMATOCRIT 32 % (33-45); HEMOGLOBIN 10.7 g/dL (11.5-14.8); LYMPHOCYTES # (AUTO) 1.1 /CMM (0.8-4.8); LYMPHOCYTES % (AUTO) 14.2 % (20.0-44.0); MEAN CORPUSCULAR HGB CONC 33 g/dl (31.0-36.0); MEAN CORPUSCULAR VOLUME 88 fL (82-100); MONOCYTES # (AUTO) 1.1 /CMM (0.1-1.30); NEUTROPHILS # (AUTO) 5.3 /CMM (1.8-8.9); PLATELET COUNT (AUTO) 131 /CMM (150-450); RED BLOOD CELL COUNT(AUTO) 3.66 MIL/uL (4.0-5.2); WHITE BLOOD COUNT (AUTO) 7.8 K/uL (4.3-11.0)
[2021-03-11 06:27] LABS: ALBUMIN 1.9 g/dL (3.4-5.0); BILIRUBIN,TOTAL 0.7 mg/dL (0.2-1.0); CALCIUM, SERUM 7.5 mg/dL (8.5-10.1); CREATININE 0.7 mg/dL (0.6-1.3); MAGNESIUM 1.4 mg/dL (1.8-2.4); PHOSPHORUS 2.2 mg/dL (2.5-4.9); TOTAL PROTEIN, SERUM 5.6 g/dL (6.4-8.2)
[2021-03-11 07:16] LABS: POTASSIUM 2.6 mmol/L (3.5-5.1)
--- NOTE | 2021-03-11 07:37 | NUR ---
TELE/RN OPENING NOTES RECEIVED PATIENT AWAKE ALERT AND ORIENTED X 2-3. PATIENT IN ROOM AIR. PATIENT IN APPARENT RESPIRATORY DISTRESS NOTED. NO COMPLAINED OF PAIN NOTED AT THIS TIME. TELEMONITOR READING SINUS TACHY 117BPM. WILL CONTINUE TO MONITOR.
[2021-03-11] MEDS: PANTOPRAZOLE 40 MG VIAL IV SCH (07:48)
[2021-03-11 08:00] VITALS: BP 149/92
--- NOTE | 2021-03-11 08:29 | NUR ---
TELE/RN NOTES POTASSIUM 2.6 PHOSPHOROUS 7[address] HERNANDEZ WAS AWARE.NO NEW ORDER AT THIS TIME.
[2021-03-11] MEDS: HYDROCODONE/APAP 5/325MG TABLET PO PRN ×2 (08:38→13:22)
[2021-03-11] MEDS: GLUCERNA SHAKE 237 ML CAN PO SCH ×3 (08:39→16:47)
[2021-03-11 08:57] LABS: BAND % (MANUAL) 2 % (0.0-5.0); LYMPHOCYTES % (MANUAL) 15 % (16-48); MONOCYTES % (MANUAL) 11 % (0-11.0); MYELOCYTES % 1 % (0-0); NEUTROPHILS % (MANUAL) 71 (42-76)
[2021-03-11] MEDS: Magnesium 1GM/D5W 100ML PREMIX 100 ML IV SCH ×4 (10:46→14:42)
[2021-03-11] MEDS ORDERED: K PHOS NEUTRAL 250 MG TABLET PO ONE (11:00)
[2021-03-11] MEDS ORDERED: MAGNESIUM OXIDE 400 MG TABLET PO ONE (11:00)
[2021-03-11] MEDS: POTASSIUM CL. PREMIX PERIPHER. 50 ML IV SCH ×6 (11:33→18:29)
--- NOTE | 2021-03-11 11:52 | NUR ---
TELE/RN NOTES DR. MOBLEY ORDER POTASSIUM 20 MEQ IV AND POTASSIUM 40 MEQ P.O. NOTED AND CARRIED OUT.
[2021-03-11 12:00] VITALS: BP 156/100
[2021-03-11] MEDS ORDERED: POTASSIUM CL. PREMIX PERIPHER. 50 ML IV SCH (12:00)
[2021-03-11] MEDS ORDERED: POTASSIUM CHLORIDE 20 MEQ TAB.PRT.SR PO SCH (12:00)
[2021-03-11] MEDS: CEFTRIAXONE 1 G in IV D5W 50 ML IV SCH (12:58)
[2021-03-11 16:00] VITALS: BP 145/100
[2021-03-11] MEDS: K PHOS NEUTRAL 250 MG TABLET PO SCH (16:47)
--- NOTE | 2021-03-11 19:03 | NUR ---
ACCESS REGISTRAR CLOSING NOTE PATIENT IS IN BED RESTING, PATIENT IS IN NO APPARENT RESPIRATORY DISTRESS. PATIENT IS ON ROOM AIR TOLERATING WELL, PATIENT IS IN TELE MONITOR, READING SINUS TACHY 120BPM. BPM. NO COMPLAINED OF PAIN NOTED AT THIS TIME. IV ACCESS AT RIGHT UPPER ARM PICC LINE WITH IV FLUID OF 1/2 NS AT 60ML/HR ON AND INFUSING WELL. SAFETY PRECAUTIONS WAS IN PLACED, BED IS LOCKED, IN THE LOWEST POSITION WITH SIDE RAILS UP. WILL ENDORSED TO PROGRAM SERVICES PLANNER NURSE FOR VAIBHAV
[2021-03-11 20:00] VITALS: BP 154/98
--- NOTE | 2021-03-11 20:00 | NUR ---
TV NEWS DIRECTOR OPENING NOTE RECEIVED PT AWAKE IN BED. A/O X2. PT STABLE ON ROOM AIR. NO SOB NOTED. NO S/S OF RESPIRATORY DISTRESS. PT IS ON EXTERNAL REVENUE ENFORCEMENT AGENT READING SINUS TACHY 123. PT IS ON BEDREST. PT HAS NO C/O PAIN AT THIS TIME. PICC NOTED IN DANNY, INFUSING 1/2 NS @ 60 ML/HR. IV IS INTACT, PATENT, AND FLUSHING WELL. GONSALVES CATH IN PLACE DRAINING CLEAR YELLOW URINE. SAFETY MEASURES MAINTAINED. BED IN LOWEST LOCKED POSITION, HOB ELEVATED, SIDE RAILS UP X2. CALL LIGHT AND TABLE WITHIN REACH. WILL CONTINUE WITH PLAN OF CARE.
[2021-03-11] MEDS: ENOXAPARIN SODIUM 30 MG/0.3 ML DISP.SYRIN SQ SCH (20:38)
[2021-03-12] VITALS (8 sets, daily range): BP systolic 139–165; BP diastolic 85–113
[2021-03-12] MEDS: HYDROCODONE/APAP 5/325MG TABLET PO PRN ×3 (00:13→19:49)
--- NOTE | 2021-03-12 00:13 | NUR ---
IMAGE ARCHIVIST PAIN PT C/O ACHING PAIN IN UPPER ABDOMEN, RATED 7/10 ON 1-10 PAIN SCALE. PT NOTED WITH FACIAL GRIMACING, GUARDING, RUBBING SITE, AND MOANING. VSS. PER PT REQUEST, ADMINISTERED NORCO 5-325 MG PO Q4H PRN FOR PAIN. WILL CONTINUE TO MONITOR.
--- NOTE | 2021-03-12 04:16 | NUR ---
IN STORE REPRESENTATIVE PAIN PT C/O ACHING PAIN IN RIGHT UPPER ABDOMEN, RATED 7/10 ON 1-10 PAIN SCALE. PT NOTED WITH FACIAL GRIMACING, GUARDING, AND GRASPING SITE. VSS. PER PT REQUEST, ADMINISTERED NORCO 5-325 MG PO Q4H PRN FOR PAIN. WILL CONTINUE TO MONITOR.
--- NOTE | 2021-03-12 06:53 | NUR ---
PERFORATOR OPERATOR OIL WELL CLOSING NOTE PT IS AWAKE IN BED. A/O X2. PT STABLE ON ROOM AIR. NO SOB NOTED. NO S/S OF RESPIRATORY DISTRESS. PT IS ON EXTERNAL DIRECTOR OF NATIONAL SALES READING SINUS TACHY 124. PT IS ON BEDREST. PT HAS NO C/O PAIN AT THIS TIME. IV ACCESS IS INTACT, PATENT, AND FLUSHING WELL. GONSALVES CATH IN PLACE DRAINING CLEAR YELLOW URINE. ALL NEEDS HAVE BEEN MET. PAIN MANAGEMENT ADMINISTERED PER ORDER. SAFETY MEASURES MAINTAINED AT ALL TIMES. BED IN LOWEST LOCKED POSITION, HOB ELEVATED, SIDE RAILS UP X2. CALL LIGHT AND TABLE WITHIN REACH. WILL ENDORSE TO ONCOMING NURSE FOR VAIBHAV.
--- NOTE | 2021-03-12 07:41 | NUR ---
MANAGER FRONT OFFICE NOTES PATIENT RECEIVED IN BED SLEEPING, ALERT AND ORIENTED X 2. PATIENT ON ROOM AIR WITH NO SIGNS OF RESPIRATORY DISTRESS NOTED, WITH EVEN NON-LABORED BREATHING. ON FAST FOOD MANAGER SINUS TACHY 125. IV ACCESS INTACT AND PATENT, SKIN WARM AND DRY TO TOUCH. GONSALVES CATHETER IN PLACE WITH URINE FLOWING BY GRAVITY. PATIENT PRESENTS WITH NO PAIN OR DISCOMFORT AT THIS TIME. SAFETY PRECAUTIONS IMPLEMENTED WITH BED LOCKED, BILATERAL SIDE RAILS UP, BED ALARM ON, BED IN LOWEST POSITIONS, AND WILL CONTINUE TO MONITOR.
[2021-03-12 07:50] LABS: ALBUMIN 2.2 g/dL (3.4-5.0); BILIRUBIN,TOTAL 0.6 mg/dL (0.2-1.0); CALCIUM, SERUM 7.6 mg/dL (8.5-10.1); CREATININE 0.6 mg/dL (0.6-1.3); MAGNESIUM 1.8 mg/dL (1.8-2.4); PHOSPHORUS 3.8 mg/dL (2.5-4.9); TOTAL PROTEIN, SERUM 6.5 g/dL (6.4-8.2)
[2021-03-12] MEDS: K PHOS NEUTRAL 250 MG TABLET PO SCH ×2 (08:13→16:10)
[2021-03-12] MEDS: PANTOPRAZOLE 40 MG TABLET.DR PO SCH (08:13)
[2021-03-12] MEDS: GLUCERNA SHAKE 237 ML CAN PO SCH ×3 (08:15→16:10)
[2021-03-12 08:23] LABS: BASOPHILS % (AUTO) 0.2 % (0.0-2.0); EOSINOPHILS % (AUTO) 0.9 % (0.0-6.0); HEMATOCRIT 35 % (33-45); HEMOGLOBIN 11.6 g/dL (11.5-14.8); LYMPHOCYTES # (AUTO) 1.2 /CMM (0.8-4.8); LYMPHOCYTES % (AUTO) 20.4 % (20.0-44.0); MEAN CORPUSCULAR HGB CONC 33 g/dl (31.0-36.0); MEAN CORPUSCULAR VOLUME 87 fL (82-100); MONOCYTES # (AUTO) 1.3 /CMM (0.1-1.30); MONOCYTES % (AUTO) 23.1 % (2.0-12.0); NEUTROPHILS # (AUTO) 3.2 /CMM (1.8-8.9); NEUTROPHILS % (AUTO) 55.4 % (43.0-81.0); PLATELET COUNT (AUTO) 157 /CMM (150-450); RED BLOOD CELL COUNT(AUTO) 4.05 MIL/uL (4.0-5.2); WHITE BLOOD COUNT (AUTO) 5.7 K/uL (4.3-11.0)
[2021-03-12 09:52] LABS: BAND % (MANUAL) 4 % (0.0-5.0); EOSINOPHILS % (MANUAL) 2 % (0-4); LYMPHOCYTES % (MANUAL) 21 % (16-48); MONOCYTES % (MANUAL) 22 % (0-11.0); MYELOCYTES % 1 % (0-0); NEUTROPHILS % (MANUAL) 50 (42-76)
[2021-03-12] MEDS ORDERED: LORAZEPAM INJ 2 MG/ML VIAL IV PRN (11:30)
[2021-03-12] MEDS: THIAMINE HCL 100 MG TABLET PO SCH (11:42)
[2021-03-12] MEDS: CEFTRIAXONE 1 G in IV D5W 50 ML IV SCH (11:42)
[2021-03-12] MEDS: FOLIC ACID 1 MG TABLET PO SCH (11:42)
[2021-03-12] MEDS: POTASSIUM CHLORIDE 20 MEQ TAB.PRT.SR PO SCH ×3 (11:43→14:16)
--- NOTE | 2021-03-12 12:55 | NUR ---
MS RN NOTES REMOVED GONSALVES CATHETER ORDERED FROM HOSPITALIST, DONALDO CHERRY TILE SHADER, WILL CONTINUE TO MONITOR PATIENT.
[2021-03-12] MEDS: IV 1/2NS 1000 ML 1,000 ML IV PRN (13:18)
--- NOTE | 2021-03-12 19:00 | NUR ---
MS RN NOTES PATIENT IN BED RESTING COMFORTABLY, ALERT AND ORIENTED X 2, MET ALL OF PATIENT'S NEEDS. PATIENT ON ROOM AIR WITH NO SIGNS OF RESPIRATORY DISTRESS NOTED, WITH EVEN NON-LABORED BREATHING. IV ACCESS INTACT AND PATENT CURRENTLY INFUSING IV FLUIDS. SKIN KEPT CLEAN, WARM AND DRY TO TOUCH. PATIENT PRESENTS WITH NO PAIN OR DISCOMFORT AT THIS TIME. SAFETY PRECAUTIONS IMPLEMENTED WITH BED LOCKED, BILATERAL SIDE RAILS UP, BED ALARM ON, BED IN LOWEST POSITIONS, AND WILL ENDORSE PLAN OF CARE TO UPCOMING RN.
--- NOTE | 2021-03-12 19:30 | NUR ---
RN OPENING NOTES Patient was last seen sleeping in her bed. Patient is A/O x2. Patient is on room air with no respiratory distress noted. Patient has a right upper arm and an iv access on her left hand gauge #18, which are intact and patent. Patient has no signs and symptoms of acute distress. Safety measures in place: Bed locked, bed alarm on, side rails up x 3, and call light within easy reach of the patient. Will continue to monitor the patient.
--- NOTE | 2021-03-12 19:49 | NUR ---
RN NOTES Patient c/o 7/10 pain. Patient was given 1 tablet of [place] 5/325mg by mouth. Will continue to monitor the patient.
[2021-03-12] MEDS: ENOXAPARIN SODIUM 30 MG/0.3 ML DISP.SYRIN SQ SCH (21:27)
--- NOTE | 2021-03-13 06:38 | NUR ---
RN CLOSING NOTES Patient was last seen sleeping in her bed. Patient is A/O x2. Patient is on room air with no respiratory distress noted. Patient has a right upper arm and an iv access on her left hand gauge #18, which are intact and patent. Patient has no signs and symptoms of acute distress. Safety measures in place: Bed locked, bed alarm on, side rails up x 3, and call light within easy reach of the patient. Will endorse care to the day shift nurse.
[2021-03-13 07:17] LABS: BASOPHILS % (AUTO) 0.2 % (0.0-2.0); EOSINOPHILS % (AUTO) 1.1 % (0.0-6.0); HEMATOCRIT 36 % (33-45); HEMOGLOBIN 11.6 g/dL (11.5-14.8); LYMPHOCYTES # (AUTO) 1.6 /CMM (0.8-4.8); LYMPHOCYTES % (AUTO) 15.8 % (20.0-44.0); MEAN CORPUSCULAR HGB CONC 32 g/dl (31.0-36.0); MEAN CORPUSCULAR VOLUME 89 fL (82-100); MONOCYTES # (AUTO) 2.2 /CMM (0.1-1.30); MONOCYTES % (AUTO) 22.1 % (2.0-12.0); NEUTROPHILS % (AUTO) 60.8 % (43.0-81.0); PLATELET COUNT (AUTO) 195 /CMM (150-450); RED BLOOD CELL COUNT(AUTO) 4.09 MIL/uL (4.0-5.2); WHITE BLOOD COUNT (AUTO) 9.8 K/uL (4.3-11.0)
[2021-03-13 07:22] LABS: CALCIUM, SERUM 7.7 mg/dL (8.5-10.1); CREATININE 0.7 mg/dL (0.6-1.3); MAGNESIUM 1.9 mg/dL (1.8-2.4); POTASSIUM 3.8 mmol/L (3.5-5.1)
[2021-03-13 08:22] VITALS: BP 143/110
[2021-03-13] MEDS: GLUCERNA SHAKE 237 ML CAN PO SCH ×3 (08:26→16:15)
[2021-03-13] MEDS: K PHOS NEUTRAL 250 MG TABLET PO SCH ×2 (09:03→16:12)
[2021-03-13] MEDS: PANTOPRAZOLE 40 MG TABLET.DR PO SCH (09:04)
[2021-03-13] MEDS: THIAMINE HCL 100 MG TABLET PO SCH (09:04)
[2021-03-13] MEDS: FOLIC ACID 1 MG TABLET PO SCH (09:04)
--- NOTE | 2021-03-13 09:07 | NUR ---
RN NOTES PATIENT IS IN BED RESTING, AWAKE AND VERBALLY RESPONSIVE, NOT IN ACUTE DISTRESS, ABLE TO MAKE NEEDS KNOWN. DUE MEDS GIVEN TO PATIENT FOR AM, TAKEN BY PATIENT. BREATHING EVEN AND UNLABORED, TOLERATING ROOM AIR. IV LINE INTACT AND PATENT. SAFETY MEASURES IN PLACE. WILL CONTINUE TO MONITOR.
--- NOTE | 2021-03-13 15:55 | NUR ---
Garbage Man note: management services technician consult request received. SS will follow up at a later time.
--- NOTE | 2021-03-13 16:15 | NUR ---
RN NOTES PATIENT VERBALIZED THAT SHE'S OKAY WITH DRINKING GLUCERNA; NO COMPLAINTS AT THIS TIME.
[2021-03-13 16:21] VITALS: BP 144/95
--- NOTE | 2021-03-13 19:25 | NUR ---
RN NOTES PATIENT RESTING IN BED, NOT IN ACUTE DISTRESS; SLEEPING BUT ABLE TO BE AWAKENED. PICC LINE INTACT AND PATENT, IVF INFUSING WELL. BREATHING EVEN AND UNLABORED. EKG RESULT SEEN BY DR. BOBO Lindsey/ ORDER NOTED. SAFETY PRECS MAINTAINED. ENDORSED TO ENGRAVER RUBBER RN FOR VAIBHAV.
[2021-03-13 20:00] VITALS: BP 147/97
--- NOTE | 2021-03-13 20:09 | NUR ---
MS RN OPENING PATIENT IN BED. NO S/S OF DISTRESS. NO C/O PAIN AT THE MOMENT. R. UPPER ARM PICC RUNNING 1/2 NS @ 60 ML/HR. SAFETY IN PLACE: BED IN LOWEST, LOCKED POSITION; CALL LIGHT WITHIN REACH. WILL CONTINUE TO MONITOR.
[2021-03-13] MEDS: ENOXAPARIN SODIUM 40 MG/0.4 ML DISP.SYRIN SQ SCH (20:48)
[2021-03-14] MEDS: METOPROLOL TARTRATE 25 MG TABLET PO SCH ×4 (00:05→17:13)
[2021-03-14 06:28] LABS: BASOPHILS % (AUTO) 0.4 % (0.0-2.0); HEMATOCRIT 33 % (33-45); HEMOGLOBIN 10.7 g/dL (11.5-14.8); LYMPHOCYTES # (AUTO) 1.5 /CMM (0.8-4.8); LYMPHOCYTES % (AUTO) 16.8 % (20.0-44.0); MEAN CORPUSCULAR HGB CONC 33 g/dl (31.0-36.0); MEAN CORPUSCULAR VOLUME 88 fL (82-100); MONOCYTES # (AUTO) 1.9 /CMM (0.1-1.30); MONOCYTES % (AUTO) 21.3 % (2.0-12.0); NEUTROPHILS # (AUTO) 5.5 /CMM (1.8-8.9); NEUTROPHILS % (AUTO) 60.5 % (43.0-81.0); PLATELET COUNT (AUTO) 219 /CMM (150-450); RED BLOOD CELL COUNT(AUTO) 3.71 MIL/uL (4.0-5.2); WHITE BLOOD COUNT (AUTO) 9.2 K/uL (4.3-11.0)
[2021-03-14 06:46] LABS: CALCIUM, SERUM 7.7 mg/dL (8.5-10.1); CREATININE 0.6 mg/dL (0.6-1.3); MAGNESIUM 1.8 mg/dL (1.8-2.4); POTASSIUM 3.3 mmol/L (3.5-5.1)
--- NOTE | 2021-03-14 07:07 | NUR ---
MS RN CLOSING PATIENT IN BED WITH EYES CLOSED, EASY TO AROUSE. A/OX3. PATIENT ABLE TO MAKE NEEDS KNOWN. ALL NEEDS ATTENDED. NO S/S OF DISTRESS. NO C/O PAIN DI. PATIENT R. UA PICC RUNNING 10/08 NS @60ML/HR.. SAFETY KEPT IN PLACE THE WHOLE SHIFT: BED IN LOWEST, LOCKED POSITION, CALL LIGHT WITHIN REACH. WILL ENDORSE CARE TO MORNING SHIFT RN
--- NOTE | 2021-03-14 07:30 | NUR ---
RN MS NOTES PT IN BED, AWAKE, ALERT AND ORIENTED, NO COMPLAINT OF PAIN OR ANY DISCOMFORT, RESPIRATIONS NORMAL, CALL LIGHT WITHIN REACH, STATES SHE SLEPT GOOD, NEEDS ATTENDED.
[2021-03-14] MEDS: IV 1/2NS 1000 ML 1,000 ML IV PRN (07:35)
[2021-03-14 08:00] VITALS: BP 142/84
[2021-03-14] MEDS ORDERED: POTASSIUM CHLORIDE 20 MEQ POWDER PACKET PO ONE (08:00)
[2021-03-14] MEDS: K PHOS NEUTRAL 250 MG TABLET PO SCH ×2 (08:34→17:13)
[2021-03-14] MEDS: FOLIC ACID 1 MG TABLET PO SCH (08:34)
[2021-03-14] MEDS: GLUCERNA SHAKE 237 ML CAN PO SCH ×3 (08:34→16:51)
[2021-03-14] MEDS: PANTOPRAZOLE 40 MG TABLET.DR PO SCH (08:34)
[2021-03-14] MEDS: THIAMINE HCL 100 MG TABLET PO SCH (08:35)
[2021-03-14] MEDS: POTASSIUM CHLORIDE 20 MEQ TAB.PRT.SR PO SCH ×2 (09:00→10:00)
--- NOTE | 2021-03-14 09:00 | NUR ---
RN MS NOTES CLARIFIED POTASSIUM ORDER WITH DR. CALDERA, PT HAS POTASSIUM 40MEQ TABS AND 40 MEQ POWDER, PER MD, GIVE WHAT PT PREFERS, PT TOOK THE POWDER FORM MIXED WITH WATER, TOLERATED WELL.
[2021-03-14 09:17] LABS: BAND % (MANUAL) 2 % (0.0-5.0); EOSINOPHILS % (MANUAL) 2 % (0-4); LYMPHOCYTES % (MANUAL) 16 % (16-48); MONOCYTES % (MANUAL) 15 % (0-11.0); NEUTROPHILS % (MANUAL) 65 (42-76)
[2021-03-14 16:00] VITALS: BP 126/92
--- NOTE | 2021-03-14 19:00 | NUR ---
RN MS NOTES PT IN BED, RESTING, AWAKE, ALERT AND ORIENTED, DENIES PAIN, NOT IN DISTRESS, ENCOURAGED INCREASED PO INTAKE, ATE BETTER DURING DINNER, COMPLIANT WITH MEDS AND INTERVENTIONS, IV FLUIDS INFUSING WELL, ALL NEEDS ATTENDED.
--- NOTE | 2021-03-14 20:00 | NUR ---
MS OPENING NOTES PATIENT RESTING IN BED, ALERT/ORIENTED X 3, PATIENT ABLE TO MAKE NEEDS KNOWN. NO COMPLAINTS OF PAIN OR DISCOMFORT AT THIS TIME. PATIENT STABLE ON ROOM AIR, NO S/S OF DISTRESS OR SHORTNESS OF BREATH NOTED. RIGHT UPPER ARM PICC LINE RUNNING 1/2 NS @ 60 ML/HR. SAFETY MEASURES IN PLACE, CALL LIGHT WITHIN REACH, BED LOCKED IN LOWEST POSITION, BED ALARM ON, SIDE RAILS UP X 3. WILL CONTINUE PLAN OF CARE. WILL CONTINUE TO MONITOR
[2021-03-14 20:20] VITALS: BP 128/88
[2021-03-14] MEDS: ENOXAPARIN SODIUM 40 MG/0.4 ML DISP.SYRIN SQ SCH (21:29)
[2021-03-15] MEDS: METOPROLOL TARTRATE 25 MG TABLET PO SCH ×4 (00:10→17:24)
[2021-03-15 06:12] LABS: BASOPHILS % (AUTO) 0.3 % (0.0-2.0); EOSINOPHILS % (AUTO) 1.2 % (0.0-6.0); HEMATOCRIT 33 % (33-45); HEMOGLOBIN 10.7 g/dL (11.5-14.8); LYMPHOCYTES # (AUTO) 1.8 /CMM (0.8-4.8); MEAN CORPUSCULAR HGB CONC 33 g/dl (31.0-36.0); MEAN CORPUSCULAR VOLUME 89 fL (82-100); MONOCYTES # (AUTO) 1.5 /CMM (0.1-1.30); MONOCYTES % (AUTO) 18.4 % (2.0-12.0); NEUTROPHILS # (AUTO) 4.9 /CMM (1.8-8.9); NEUTROPHILS % (AUTO) 59.1 % (43.0-81.0); PLATELET COUNT (AUTO) 230 /CMM (150-450); WHITE BLOOD COUNT (AUTO) 8.3 K/uL (4.3-11.0)
--- NOTE | 2021-03-15 07:00 | NUR ---
MS RN CLOSING NOTES PATIENT RESTING IN BED, ALERT/ORIENTED X 3, PATIENT ABLE TO MAKE NEEDS KNOWN. NO COMPLAINTS OF PAIN OR DISCOMFORT AT THIS TIME. PATIENT STABLE ON ROOM AIR, NO S/S OF DISTRESS OR SHORTNESS OF BREATH NOTED. RIGHT UPPER ARM PICC LINE HEP LOCKED AND LEFT HAND IV SALINE LOCKED. MEDICATIONS GIVEN ORDERED. PATIENT NEEDS MET THROUGHOUT SHIFT. SAFETY MEASURES IN PLACE, CALL LIGHT WITHIN REACH, BED LOCKED IN LOWEST POSITION, BED ALARM ON, SIDE RAILS UP X 3. WILL ENDORSE TO DAY SHIFT NURSE FOR CONTINUITY OF CARE
[2021-03-15 07:02] LABS: ALBUMIN 1.9 g/dL (3.4-5.0); BILIRUBIN,TOTAL 0.3 mg/dL (0.2-1.0); CALCIUM, SERUM 7.4 mg/dL (8.5-10.1); CREATININE 0.6 mg/dL (0.6-1.3); POTASSIUM 3.4 mmol/L (3.5-5.1); TOTAL PROTEIN, SERUM 5.6 g/dL (6.4-8.2)
--- NOTE | 2021-03-15 07:34 | NUR ---
MS RN OPENING NOTES RECEIVED PATIENT ASLEEP, EASY TO AROUSE. ALERT AND ORIENTED X 3, ON ROOM AIR TOLERATING WELL. NO SIGNS OF DISTRESS. BREATHING IS EVEN AND UNLABORED. IV ACCESS LHAND#18 AND DANNY PICC ON HEP LOCK, PATENT AND INTACT. BED MAINTAINED ON LOWEST POSITION AND LOCKED WITH SIDE RAILS UP X 2. CALL LIGHT AND BEDSIDE TABLE IS WITHIN REACH. WILL CONTINUE TO MONITOR THROUGHOUT SHIFT.
[2021-03-15 08:00] VITALS: BP 123/84
[2021-03-15] MEDS ORDERED: POTASSIUM CHLORIDE 20 MEQ TAB.PRT.SR PO ONE (08:00)
[2021-03-15] MEDS: FOLIC ACID 1 MG TABLET PO SCH (08:21)
[2021-03-15] MEDS: THIAMINE HCL 100 MG TABLET PO SCH (08:21)
[2021-03-15] MEDS: PANTOPRAZOLE 40 MG TABLET.DR PO SCH (08:21)
[2021-03-15] MEDS: K PHOS NEUTRAL 250 MG TABLET PO SCH ×2 (08:21→17:24)
[2021-03-15] MEDS: GLUCERNA SHAKE 237 ML CAN PO SCH ×3 (08:22→17:09)
[2021-03-15] MEDS ORDERED: METO50TA16 PO (08:24)
[2021-03-15 09:02] LABS: BAND % (MANUAL) 1 % (0.0-5.0); LYMPHOCYTES % (MANUAL) 14 % (16-48); MONOCYTES % (MANUAL) 11 % (0-11.0); MYELOCYTES % 1 % (0-0); NEUTROPHILS % (MANUAL) 73 (42-76)
[2021-03-15 12:00] VITALS: BP 125/92
--- NOTE | 2021-03-15 14:30 | NUR ---
SS Note: SS consult requested for Homelessness.The pt. is a 60 year old Black female who was [facility] to [facility] ED after found in streets acting bizarre. The pt. is A&O X 3. Patient is laying in bed sleeping and asked SW to speak to her daughter. SW called and spoke to pt.'s daughter, Evelyn [phone] who is guarded and stated that the pt. is not homeless and normally resides at a [facility] called [facility]". Evelyn could not provide address or phone number stating she was driving. MARTI requested that Evelyn provided address or phone number of B&C upon discharge. Evelyn is agreeable. SW placed addiction resources in pt.'s discharge packet. Per Evelyn, the pt. 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 Evelyn stated that the pt. does not want to quit using drugs and hopes she will agree to seek help. ADDICTION RESOURCES For Drugs and Alcohol [facility] Substance Abuse Helpline([facility] Outpatient treatment, residential treatment, recovery support for youth and adults [facility] www[facility] Teen programs for drug/alcohol education and support [facility] [place]. Program for adults, sliding scale provides support and education Rosa[facility] Kitchen www.ShapeUp.org [place]; Outpatient/residential treatment programs; transition to sober living [facility] www.cri-help.org [place]; Outpatient and residential treatment programs; transition to sober living [facility] [place]; Outpatient education and supportive programs for teens and adults [facility] www.oasiswomensrecovery.org [place]; Residential treatment and work program for females only [place] [place] www.TeachTown.org [place]: Outpatient/residential treatment program for teens and young adults [facility] www.[facility].org [place] Detox, inpatient, outpatient for adults and youth [facility], [facility]. [place]; Outpatient programs and referrals to community residential programs. Alcoholics Anonymous -SFV information and meeting and schedules www.aa-intergroup.org Fq-Nfqz-Vvjnsho https://al-anon.org/ [place] support groups for family of alcoholics. Marijuana Anonymous www.madistrict6.org -SFV listing of meetings Narcotics Anonymous www.na.org SOBER LIVING RESOURCES [facility] www.soberhousing.net A non-profit agency that provides resources to recovery and sober living homes throughout [facility] Sober Living Homes: A Work in Progress, [facility] Recovery [facility], [place] [facility] Women Sober Living Homes: [facility] x [address] [place], [place] [facility] [place] Sober Living Homes: [facility] Counseling--Outpatient [facility] [address] [place] [address] [place] [address] (Specializes in in-depth psychotherapy for emotional distress: anxiety, depression, interpersonal conflicts, life transitions, childhood abuse) [facility] [address] [place] [address] (Assist with solving problem marital difficulties, separation & divorce, aging parents, & grief, chronic & terminal illness) [facility] [address] [place] [address] (Deal with loss & grief, anxiety, marital difficulties) Homebound/Mental Health Services [address] [facility], [address] [place], [place] [id number] (Provide in-home mental services to people who are incapable of leaving their homes) [facility] for Needs of the Elderly Senior Service/Resource Center [address] [place], [place] [id number] [facility] [address] [place], [place] [id number] PSYCHIATRIC OUTPATIENT SERVICES [facility] Partial Hospitalization and Intensive Outpatient Program (Managed Care and [place] Only)[address] [facility]. [facility] [phone] [facility] Partial Hospitalization and Outpatient [id number] [facility]. [address] [place], [place] [phone] [facility] Partial Hospitalization and Outpatient [address] [place], [place] [phone] [facility] [place] [id number] [facility]. [address] [place], [place] [phone] [facility] Partial Hospitalization and Outpatient [id number] [facility]ely[place], [phone] Crisis and Hotline Telephone Numbers 24-Hour service unless stated [place] Crisis Hotlines: [facility] Mental Health/Crisis Line........982.725.7579 Suicide Prevention Center (24 Hours).......[phone] Suicide Prevention Crisis Center.......[phone] (24 Hours) Assaults Against Women Hotline.........648.765.7678 (24 Hours -- [facility]) Women and Children Crisis Assisted...........617.215.1958 (24 Hours) Child Abuse Hotline............579.885.5414 ([facility] (24 Hours)..........[phone] Alcoholics Anonymous (24 Hours)..........[phone] Cocaine Anonymous (24 Hours)............[phone] Narcotics Anonymous (24 Hours)..........[phone] [facility] [address] [place] [address] Mental Health Services Alma [place] [address] [place] [address] Services: Outpatient therapy for children, teens, young adults, adults, older adults, and families; Psychiatric services, medication support Crisis and Hotline Telephone Numbers 24-Hour service unless stated [place] Crisis Hotlines: [facility] Mental Health/Crisis Line........[phone] Suicide Prevention Center (24 Hours).......[phone] Suicide Prevention Crisis Center.......[phone] (24 Hours) Alcoholics Anonymous (24 Hours)..........[phone] [place] Crisis Hotlines: Alcohol and Drug Helpline - Provides referrals to local facilities where adolescents and adults can seek help. Brief intervention. [facility] Helpline [facility] [place] [facility]ally Ill 9-505-910-[place] National Youth Crisis Hotline [place] [facility] Provides free information on specific disorders, referral directory to mental health providers, national directory of local mental health associations (M-F, 9-5 EST) National [place] of Mental Health Information Line: Provide sinformation and literature on mental illness by disorder-for professionals and general public.
[2021-03-15 16:00] VITALS: BP 106/75
--- NOTE | 2021-03-15 16:30 | NUR ---
MS SENIOR AUTOMATION ENGINEER NOTES PATIENT WAS DISCHARGED IN STABLE CONDITION. PATIENT DISCHARGE INSTRUCTIONS WERE REVIEWED WITH PATIENT AND PRESCRIPTION GIVEN. PATIENT VERBALIZED UNDERSTANDING AND ALL QUESTIONS ANSWERED. PATIENT BELONGINGS ALL ACCOUNTED FOR AND RETURNED TO PATIENT. IV ACCESS AND ID BAND REMOVED. PATIENT WAS PICKED UP BY DAUGHTER CUBA AND LEFT THE UNIT AT 1624 VIA WHEELCHAIR WITH NOLBERTO.
[2021-03-15 17:24] VITALS: BP 106/75
== END 2021-03-15 18:48 | disposition home or self-care (01) | DRG 133 ==
LOC: ER 10:26 → ICU 17:42 → TELE 03-10 18:07 → MED 03-12 08:45
PROVIDERS: ATTEND Nurse Practitioner Acute Care
PROC: 5A1945Z Respiratory Ventilation, 24-96 Consecutive Hours (ICD-10-PCS; principal; 2021-03-07)
PROC: 02HV33Z Insertion of Infusion Device into Superior Vena Cava, Percutaneous Approach (ICD-10-PCS; 2021-03-07)
PROC: B548ZZA Ultrasonography of Superior Vena Cava, Guidance (ICD-10-PCS; 2021-03-07)
PROC: 0BH17EZ Insertion of Endotracheal Airway into Trachea, Via Natural or Artificial Opening (ICD-10-PCS; 2021-03-07)
DX: J96.01 Acute respiratory failure with hypoxia (principal); N17.0 Acute kidney failure with tubular necrosis; G92 Toxic encephalopathy; E87.4 Mixed disorder of acid-base balance; J90 Pleural effusion, not elsewhere classified; I95.9 Hypotension, unspecified; E87.2 Acidosis; E87.0 Hyperosmolality and hypernatremia; M62.82 Rhabdomyolysis; E87.1 Hypo-osmolality and hyponatremia; E83.42 Hypomagnesemia; F15.10 Other stimulant abuse, uncomplicated; Z59.0 Homelessness; D72.829 Elevated white blood cell count, unspecified; E87.6 Hypokalemia; F20.9 Schizophrenia, unspecified; I10 Essential (primary) hypertension; D64.9 Anemia, unspecified; F19.10 Other psychoactive substance abuse, uncomplicated; I25.10 Atherosclerotic heart disease of native coronary artery without angina pectoris; K52.9 Noninfective gastroenteritis and colitis, unspecified; E86.0 Dehydration; J98.11 Atelectasis; Z95.5 Presence of coronary angioplasty implant and graft; K82.8 Other specified diseases of gallbladder; G31.84 Mild cognitive impairment of uncertain or unknown etiology; E86.9 Volume depletion, unspecified; E83.39 Other disorders of phosphorus metabolism; K57.92 Diverticulitis of intestine, part unspecified, without perforation or abscess without bleeding
CPT/HCPCS: 31720; 36415; 36600; 71045-TC; 71250-TC; 74178; 80048-TC; 80053-TC; 80061-TC; 80076-TC; 80202-TC; 81001; 82010-TC; 82550-TC; 82553; 82803-TC; 83605-TC; 83735-TC; 83880; 83970; 84100-TC; 84155; 84165; 84439-TC; 84443-TC; 84478-TC; 84480; 84484-TC; 85025-TC; 87040-TC; 87086-TC; 92521; 92526; 92611-TC; 93307-TC; 94003-TC; 94760-TC; 94799-TC; 97116-TC; 97530-TC; 99082-TC; A9563; C9113; G0378; G0480; J0696; J1650; J2060; J2250; J2543; J3370; J3475; J3480; J3490; J7030; J7040; J7050; J7060; Q9967; U0003